=== PATIENT | female | born 1975 | race African-American/Black ===

== ENCOUNTER 2016-10-30 23:41 | Emergency (ER) | payer OTHER ==
[2016-10-31] MEDS ORDERED: DIPHENHYDRAMINE 50 MG/ML VIAL ONE (03:52)
[2016-10-31] MEDS ORDERED: METOCLOPRAMIDE 10 MG/2 ML VIAL ONE (03:52)
[2016-10-31] MEDS ORDERED: KETOROLAC 30 MG/ML VIAL ONE (03:52)
[2016-10-31] MEDS ORDERED: SODIUM CHLORIDE 0.9% 1,000 ML ONE (03:53)
== END 2016-10-31 04:47 | disposition home or self-care (01) ==
LOC: ER 10-31 00:05
DX: R51 Headache (principal)
CPT/HCPCS: 70450 ×2; 96361 ×2; 96374 ×2; 96375 ×2; 99284; J1885

== ENCOUNTER 2016-11-17 20:31 | Emergency (ER) | payer OTHER ==
[2016-11-17] MEDS ORDERED: ONDANSETRON ODT 4 MG TAB ONE (22:52)
== END 2016-11-17 23:14 | disposition home or self-care (01) ==
LOC: ER 20:31
DX: S06.0X9A Concussion with loss of consciousness of unspecified duration, initial encounter (principal); R40.2412 Glasgow coma scale score 13-15, at arrival to emergency department; S39.91XA Unspecified injury of abdomen, initial encounter; S20.212A Contusion of left front wall of thorax, initial encounter; S20.211A Contusion of right front wall of thorax, initial encounter; S16.1XXA Strain of muscle, fascia and tendon at neck level, initial encounter; V49.40XA Driver injured in collision with unspecified motor vehicles in traffic accident, initial encounter
CPT/HCPCS: 70450; 71010; 72100; 72125